=== PATIENT | female | born 1985 | race Two or more races ===

== ENCOUNTER 2018-09-25 16:26 | Emergency (ER) | payer MEDICAID ==
[~2018-09-25] VITALS: Ht 170.2 cm; Wt 69.0 kg
[2018-09-25] MEDS ORDERED: normal saline 1000ML IV soln IVB ONE (16:45)
[2018-09-25] MEDS ORDERED: morphine 4 MG/ML inj SYRINge IV PRN (16:45)
[2018-09-25] MEDS ORDERED: ondansetron/PF 4mg/2ml inj IV ONE (16:45)
[2018-09-25 17:38] LABS: URINE HCG NEGATIVE (NEG)
[2018-09-25 17:40] LABS: CLARITY,URINE CLEAR (Clear); COLOR,URINE STRAW (Yellow); GLUCOSE, URINE NEGATIVE (Neg); KETONES,URINE NEGATIVE (Neg); LEUKOCYTE ESTERASE ,URINE NEGATIVE (Neg); NITRITES, URINE NEGATIVE (Neg); OCCULT BLOOD,URINE TRACE-INTACT (Neg); PROTEIN,URINE NEGATIVE (Neg); UROBILINOGEN,URINE 0.2 E.U/dL (0.2-1.0)
[2018-09-25] MEDS ORDERED: LIDOcaine Viscous 15ml cup PO ONE (17:40)
[2018-09-25] MEDS ORDERED: mag hydrox/Alum hydrox/simeth 30ml oral suspension PO ONE (17:40)
[2018-09-25] MEDS ORDERED: famotidine 20mg tablet PO ONE (17:40)
[2018-09-25 17:41] LABS: UA COLLECTION TYPE CLN CATCH MIDSTREAM
[2018-09-25 17:46] LABS: BACTERIA,URINE FEW /HPF (Neg); MUCUS STRANDS FEW /LPF (Neg); RBC,URINE 0-2 /HPF (0-2); SQUAMOUS EPITHELIAL CELL,UR FEW /LPF (FEW); WBC,URINE 0-4 /HPF (0-4)
[2018-09-25 18:05] LABS: BASOPHILS % (AUTO) 0.3 % (0-1); EOSINOPHILS # (AUTO) 0.1 X10'3 (0-0.9); EOSINOPHILS % (AUTO) 0.7 % (0-6); HEMATOCRIT 37.8 % (35.0-45.0); HEMOGLOBIN 12.7 g/dl (12.0-16.0); LYMPHOCYTES # (AUTO) 1.5 X10'3 (1.1-4.8); LYMPHOCYTES % (AUTO) 14.8 % (21-51); MEAN CORPUSCULAR HEMOGLOBIN 31.4 PG (27.0-31.0); MEAN CORPUSCULAR HGB CONC 33.6 g/dL (33.0-36.5); MEAN CORPUSCULAR VOLUME 93.5 FL (78-98); MEAN PLATELET VOLUME 7.7 FL (7.4-10.4); MONOCYTES # (AUTO) 0.5 X10'3 (0-0.9); MONOCYTES % (AUTO) 5.1 % (2-12); NEUTROPHILS # (AUTO) 7.8 X10'3 (1.8-7.7); NEUTROPHILS % (AUTO) 79.1 % (42-75); PLATELET COUNT 237 X10'3 (140-440); RED BLOOD COUNT 4.04 X10'6 (4.20-5.60); RED CELL DISTRIBUTION WIDTH 12.8 % (11.5-14.5); WHITE BLOOD COUNT 9.9 X10'3 (4.5-11.0)
[2018-09-25 18:15] LABS: ALANINE AMINOTRANSFERASE 27 U/L (12-78); ALBUMIN 3.9 G/DL (3.4-5.0); ALKALINE PHOSPHATASE 56 IU/L (46-116); ANION GAP 8 (8-16); ASPARTATE AMINO TRANSFERASE 18 U/L (10-37); BILIRUBIN,TOTAL 0.5 MG/DL (0.1-1.0); BLOOD UREA NITROGEN 7 MG/DL (7-18); BUN/CREATININE RATIO 10.1 (6.6-38.0); CHLORIDE 104 MMOL/L (99-107); CREATININE 0.69 MG/DL (0.40-0.90); GLUCOSE 88 MG/DL (70-104); LIPASE 86 U/L (73-393); POTASSIUM 3.3 MMOL/L (3.5-5.1); SODIUM 139 MMOL/L (135-145); TOTAL CARBON DIOXIDE 26.7 MMOL/L (24-32); TOTAL PROTEIN 7.8 G/DL (6.4-8.2); eGFR > 90 ML/MIN
[2018-09-25] MEDS ORDERED: PANT-47 PO (18:22)
[2018-09-25] MEDS ORDERED: ONDA8TAB6 PO (18:22)
[2018-09-25] MEDS ORDERED: ESOMEPRAZOLE 40 MG VIAL IV ONE (18:25)
[2018-09-25] MEDS ORDERED: pantoprazole 40 MG vial IV ONE (18:25)
[2018-09-25 19:08] VITALS: BP 119/65
== END 2018-09-25 19:11 | disposition home or self-care (01) ==
LOC: ER 16:27
DX: K29.00 Acute gastritis without bleeding (principal); R10.13 Epigastric pain; Z79.899 Other long term (current) drug therapy; Z88.0 Allergy status to penicillin; Z56.0 Unemployment, unspecified
CPT/HCPCS: 36415; 80053; 81001; 81025; 83690; 85025; 96374; 96375; 99283; J2270; J2405; J7030; 96361

== ENCOUNTER 2019-12-27 15:36 | Outpatient (CLI) | payer MEDICAID ==
[~2019-12-27 15:36] MED LIST: ONDA8TAB6 PO; PANT-47 PO
[2019-12-31] MEDS ORDERED: NO HOME MEDS (10:06)
== END 2019-12-27 23:59 | disposition home or self-care (01) ==
LOC: LAB 15:36
PROVIDERS: ATTEND Surgery
DX: Z01.812 Encounter for preprocedural laboratory examination (principal); Z18.9 Retained foreign body fragments, unspecified material; Z20.828 Contact with and (suspected) exposure to other viral communicable diseases
CPT/HCPCS: 36415; 87635

== ENCOUNTER 2020-01-02 07:41 | Day surgery (SDC) | payer MEDICAID ==
[2020-01-02] VITALS (7 sets, daily range): BP systolic 117–134; BP diastolic 72–84
[~2020-01-02] VITALS: Ht 170.2 cm; Wt 56.7 kg
[~2020-01-02 07:41] MED LIST changes: +NO HOME MEDS; -ONDA8TAB6 PO; -PANT-47 PO; +cefazolin/dext.iso 2gm/50ml 50 ML IV ONE; +clindamycin-Cleocin 900mg/D5W 50 ML IV ONE; +famotidine 20mg tablet PO ONE; +ringers solution, lacted 1,000 ML IV SCH
[2020-01-02 09:25] LABS: BASOPHILS % (AUTO) 0.6 % (0-1); EOSINOPHILS # (AUTO) 0.1 X10'3 (0-0.9); EOSINOPHILS % (AUTO) 2.1 % (0-6); LYMPHOCYTES # (AUTO) 1.9 X10'3 (1.1-4.8); LYMPHOCYTES % (AUTO) 27.7 % (21-51); MEAN CORPUSCULAR HEMOGLOBIN 31.5 PG (27.0-31.0); MEAN CORPUSCULAR HGB CONC 33.3 g/dL (33.0-36.5); MEAN CORPUSCULAR VOLUME 94.6 FL (78-98); MEAN PLATELET VOLUME 7.2 FL (7.4-10.4); MONOCYTES # (AUTO) 0.4 X10'3 (0-0.9); MONOCYTES % (AUTO) 6.2 % (2-12); NEUTROPHILS # (AUTO) 4.3 X10'3 (1.8-7.7); NEUTROPHILS % (AUTO) 63.4 % (42-75); PRE OP PLATELET COUNT 234 X10'3 (140-440); RED BLOOD COUNT 4.12 X10'6 (4.20-5.60); RED CELL DISTRIBUTION WIDTH 12.8 % (11.5-14.5)
[2020-01-02 09:38] LABS: ALBUMIN/GLOBULIN RATIO 1.1 (1.1-1.5); ALKALINE PHOSPHATASE 53 IU/L (46-116); BLOOD UREA NITROGEN 11 MG/DL (7-18); BUN/CREATININE RATIO 15.9 (6.6-38.0); CALCIUM 8.8 MG/DL (8.5-10.1); CHLORIDE 104 MMOL/L (99-107); CREATININE 0.69 MG/DL (0.40-0.90); PRE OP ALT 33 U/L (30-65); PRE OP ANION GAP 4 (8-16); PRE OP AST 19 U/L (10-37); PRE OP BILIRUB, TOTAL 0.4 MG/DL (0.0-1.0); PRE OP GLUCOSE 79 MG/DL (70-104); PRE OP POTASSIUM 4.1 MMOL/L (3.4-5.1); PRE OP SODIUM 137 MMOL/L (135-145); TOTAL CARBON DIOXIDE 29.2 MMOL/L (24-32); TOTAL PROTEIN 7.7 G/DL (6.4-8.2); eGFR > 90 ML/MIN
[2020-01-02 09:42] LABS: PREOP HCG, QL SERUM NEGATIVE (NEGATIVE)
[2020-01-02] MEDS ORDERED: ringers solution, lacted 1,000 ML IV SCH (10:46)
[2020-01-02] MEDS ORDERED: morphine 2 MG/ML inj. syringe IV PRN (10:50)
[2020-01-02] MEDS ORDERED: labetalol 20mg/4ml (5mg/ml) syringe IV PRN (10:50)
[2020-01-02] MEDS ORDERED: hydrALAZINE 20mg/ml inj. IV PRN (10:50)
[2020-01-02] MEDS ORDERED: ondansetron/PF 4mg/2ml inj IV PRN (10:50)
[2020-01-02] MEDS ORDERED: meperidine/PF 25mg/ml syringe IV PRN ×2 (10:50)
[2020-01-02] MEDS ORDERED: morphine 4 MG/ML inj SYRINge IV PRN (10:50)
[2020-01-02] MEDS ORDERED: sevoflurane 250ml liquid IH ONE (11:00)
[2020-01-02] MEDS ORDERED: dexamethasone sod phosphate 10mg/ml inj ONE (11:00)
[2020-01-02] MEDS ORDERED: fentaNYL/PF 50MCG/1 ML 2ML syringe ONE (11:08)
[2020-01-02] MEDS ORDERED: midazolam 2 mg/2 ml injection ONE (11:08)
[2020-01-02] MEDS ORDERED: BUPIVAcaine/PF 2.5mg/ml (0.25%) 10ml vial ONE (11:08)
[2020-01-02] MEDS ORDERED: LIDOcaine 2% (20mg/ml) 5ml vial ONE (11:16)
[2020-01-02] MEDS ORDERED: ondansetron/PF 4mg/2ml inj ONE (11:16)
[2020-01-02] MEDS ORDERED: propofol inj 20 ML IV ONE (11:16)
--- NOTE | 2020-01-02 11:49 | NUR ---
Received from OR via [facility] , accompanied by Anesthesiologist TONY and report given by Anesthesiolgist. 100% 02SAT, VIA MASK, 20 GAUGE PIV RUE RUNNING LR@100. SHAUN SMALL STERI STRIP DRESSING THAT IS CDI. PT DENIES PAIN, VSS Addendum: 01/02/20 at 1200 by Albert Watson RN, RN Amended: Links added.
--- NOTE | 2020-01-02 12:43 | NUR ---
PATIENT AND FAMILY AND THEY HAVE VERBALIZED UNDERSTANDING, OPPORTUNITY TO ASK QUESTIONS GIVEN AND PATIENT COMFORTABLE WITH DC. IV TAKEN OUT WITHOUT COMPLICATION. PATIENT HAS MET ALL DC CRITERIA FOR DC HOME. I HAVE REVIEWED D/C INSTRUCTIONS WITH OUT VIA WHEELCHAIR WHERE PATIENT WAS TAKEN HOME WITH ALL BELONGINGS. FAMILY GAVE PATIENT TRANSPORT HOME. PATIENT DRESSED UPPER BODY AND CAME FROM OR WITH LE CLOTHING ON, TRANSFERED INDEPENDENTLY AND VSS. Addendum: 01/02/20 at 1256 by Albert Watson RN, RN Amended: Links added.
== END 2020-01-02 12:43 | disposition home or self-care (01) ==
LOC: PAS 07:41
PROVIDERS: ATTEND Surgery
DX: Z30.46 Encounter for surveillance of implantable subdermal contraceptive (principal); Z85.6 Personal history of leukemia; Z87.891 Personal history of nicotine dependence; Z98.890 Other specified postprocedural states
CPT/HCPCS: 11982; 36415; 80053; 84703; 85025; J1100; J2001; J2250; J2405; J2704; J3010; J3490; J7120; A4618; A7000

== ENCOUNTER 2020-05-05 00:27 | Emergency (ER) | payer MEDICAID ==
[~2020-05-05] VITALS: Ht 170.2 cm; Wt 71.3 kg
[~2020-05-05 00:27] MED LIST changes: -cefazolin/dext.iso 2gm/50ml 50 ML IV ONE; -clindamycin-Cleocin 900mg/D5W 50 ML IV ONE; -famotidine 20mg tablet PO ONE; -ringers solution, lacted 1,000 ML IV SCH
[2020-05-05] MEDS ORDERED: pantoprazole 40 MG vial IV ONE (01:20)
[2020-05-05] MEDS ORDERED: ondansetron/PF 4mg/2ml inj IV ONE (01:20)
[2020-05-05] MEDS ORDERED: normal saline 1000ML IV soln IVB ONE (01:20)
[2020-05-05 02:14] LABS: BASOPHILS % (AUTO) 0.2 % (0-1); EOSINOPHILS # (AUTO) 0.2 X10'3 (0-0.9); HEMATOCRIT 28.5 % (35.0-45.0); HEMOGLOBIN 9.9 g/dl (12.0-16.0); LYMPHOCYTES % (AUTO) 24.1 % (21-51); MEAN CORPUSCULAR HEMOGLOBIN 32.8 PG (27.0-31.0); MEAN CORPUSCULAR HGB CONC 34.7 g/dL (33.0-36.5); MEAN CORPUSCULAR VOLUME 94.4 FL (78-98); MEAN PLATELET VOLUME 7.4 FL (7.4-10.4); MONOCYTES # (AUTO) 0.4 X10'3 (0-0.9); MONOCYTES % (AUTO) 5.5 % (2-12); NEUTROPHILS # (AUTO) 5.6 X10'3 (1.8-7.7); NEUTROPHILS % (AUTO) 68.2 % (42-75); PLATELET COUNT 212 X10'3 (140-440); RED BLOOD COUNT 3.02 X10'6 (4.20-5.60); WHITE BLOOD COUNT 8.2 X10'3 (4.5-11.0)
[2020-05-05 02:26] LABS: ALANINE AMINOTRANSFERASE 16 U/L (12-78); ALBUMIN/GLOBULIN RATIO 0.9 (1.1-1.5); ALKALINE PHOSPHATASE 51 IU/L (46-116); ANION GAP 7 (8-16); ASPARTATE AMINO TRANSFERASE 14 U/L (10-37); BILIRUBIN,TOTAL 0.2 MG/DL (0.1-1.0); BLOOD UREA NITROGEN 7 MG/DL (7-18); BUN/CREATININE RATIO 13.5 (6.6-38.0); CALCIUM 8.3 MG/DL (8.5-10.1); CHLORIDE 107 MMOL/L (99-107); CREATININE 0.52 MG/DL (0.40-0.90); GLUCOSE 85 MG/DL (70-104); POTASSIUM 3.2 MMOL/L (3.5-5.1); SODIUM 138 MMOL/L (135-145); TOTAL CARBON DIOXIDE 24.1 MMOL/L (24-32); TOTAL PROTEIN 6.4 G/DL (6.4-8.2); eGFR > 90 ML/MIN
[2020-05-05 04:11] LABS: HEMATOCRIT 27.4 % (35.0-45.0); HEMOGLOBIN 9.3 g/dl (12.0-16.0); MEAN CORPUSCULAR HEMOGLOBIN 32.4 PG (27.0-31.0); MEAN CORPUSCULAR HGB CONC 34.1 g/dL (33.0-36.5); MEAN PLATELET VOLUME 7.3 FL (7.4-10.4); PLATELET COUNT 210 X10'3 (140-440); RED BLOOD COUNT 2.88 X10'6 (4.20-5.60); WHITE BLOOD COUNT 8.6 X10'3 (4.5-11.0)
--- NOTE | 2020-05-05 05:19 | NUR ---
Pt resting, Dr. Walters advised to recheck pt's blood work again shortly and reevaluate it for changes.
[2020-05-05] MEDS ORDERED: PANT-47 PO (05:59)
--- NOTE | 2020-05-05 06:48 | NUR ---
DR URIOSTEGUI STATED THAT CBC WAS ORDERED AT 0530 AND NOT RECEVIED YET ,NOTIFIED PREIVOUS NURSE COLLECTED BUT GET CLOTTED ,INFORMED THAT WILL DRAW AND SEND IT TO LAB ALSO ASKED IF WE NEED TO DO HR MONITOR PER MD NOT NEEDED JUST H/H LEVEL RE EVALUATION.
[2020-05-05 07:19] LABS: HEMATOCRIT 26.9 % (35.0-45.0); HEMOGLOBIN 9.2 g/dl (12.0-16.0); MEAN CORPUSCULAR HEMOGLOBIN 32.6 PG (27.0-31.0); MEAN CORPUSCULAR HGB CONC 34.4 g/dL (33.0-36.5); MEAN CORPUSCULAR VOLUME 94.8 FL (78-98); PLATELET COUNT 206 X10'3 (140-440); RED BLOOD COUNT 2.84 X10'6 (4.20-5.60); WHITE BLOOD COUNT 8.2 X10'3 (4.5-11.0)
[2020-05-05 08:14] VITALS: BP 108/56
== END 2020-05-05 08:20 | disposition home or self-care (01) ==
LOC: ER 00:27
DX: O26.892 Other specified pregnancy related conditions, second trimester (principal); K92.0 Hematemesis; Z56.0 Unemployment, unspecified; Z79.899 Other long term (current) drug therapy; Z3A.16 16 weeks gestation of pregnancy
CPT/HCPCS: 36415; 80053; 85025; 85027; 85610; 96361; 96374; 96375; 99285; C9113; J2405; J7030; 96360

== ENCOUNTER 2020-07-18 22:17 | Emergency (ER) | payer MEDICAID ==
[~2020-07-18] VITALS: Ht 170.2 cm; Wt 72.0 kg
[~2020-07-18 22:17] MED LIST changes: +PANT-47 PO
[2020-07-18 22:59] LABS: BASOPHILS % (AUTO) 0.1 % (0-1); EOSINOPHILS # (AUTO) 0.1 X10'3 (0-0.9); EOSINOPHILS % (AUTO) 0.9 % (0-6); HEMATOCRIT 32.7 % (35.0-45.0); HEMOGLOBIN 11.1 g/dl (12.0-16.0); LYMPHOCYTES # (AUTO) 1.9 X10'3 (1.1-4.8); LYMPHOCYTES % (AUTO) 20.2 % (21-51); MEAN CORPUSCULAR HEMOGLOBIN 32.3 PG (27.0-31.0); MEAN CORPUSCULAR HGB CONC 33.9 g/dL (33.0-36.5); MEAN CORPUSCULAR VOLUME 95.2 FL (78-98); MEAN PLATELET VOLUME 7.3 FL (7.4-10.4); MONOCYTES # (AUTO) 0.4 X10'3 (0-0.9); MONOCYTES % (AUTO) 4.7 % (2-12); NEUTROPHILS % (AUTO) 74.1 % (42-75); PLATELET COUNT 235 X10'3 (140-440); RED BLOOD COUNT 3.44 X10'6 (4.20-5.60); RED CELL DISTRIBUTION WIDTH 12.7 % (11.5-14.5); WHITE BLOOD COUNT 9.5 X10'3 (4.5-11.0)
[2020-07-18 23:11] LABS: ALANINE AMINOTRANSFERASE 20 U/L (12-78); ALBUMIN/GLOBULIN RATIO 0.7 (1.1-1.5); ALKALINE PHOSPHATASE 72 IU/L (46-116); ANION GAP 9 (8-16); ASPARTATE AMINO TRANSFERASE 19 U/L (10-37); BILIRUBIN,TOTAL 0.2 MG/DL (0.1-1.0); BLOOD UREA NITROGEN 9 MG/DL (7-18); CALCIUM 9.1 MG/DL (8.5-10.1); CHLORIDE 102 MMOL/L (99-107); GLUCOSE 115 MG/DL (70-104); POTASSIUM 3.3 MMOL/L (3.5-5.1); SODIUM 136 MMOL/L (135-145); TOTAL CARBON DIOXIDE 24.8 MMOL/L (24-32); TOTAL PROTEIN 7.1 G/DL (6.4-8.2); eGFR > 90 ML/MIN
[2020-07-18] MEDS ORDERED: ketorolac trometh inj. 60 MG/2 ML VIAL IM ONE (23:15)
[2020-07-19 00:48] VITALS: BP 145/78
== END 2020-07-19 01:08 | disposition home or self-care (01) ==
LOC: ER 22:18
DX: R07.81 Pleurodynia (principal); R09.1 Pleurisy; R07.89 Other chest pain; Z56.0 Unemployment, unspecified; Z79.899 Other long term (current) drug therapy
CPT/HCPCS: 36415; 80053; 83880; 84484; 85025; 93005; 93306; 96372; 99285; J1885